=== PATIENT | female | born 1980 | race Caucasian/White ===

== ENCOUNTER 2019-05-06 17:52 | Inpatient (IN) | payer MEDICAID ==
[~2019-05-06] VITALS: Ht 154.9 cm; Wt 93.1 kg
[2019-05-06 18:53] VITALS: Ht 154.9 cm; Wt 93.1 kg
[2019-05-06 18:54] VITALS: BP 126/79; PULSE 75; RESP 20
== END 2019-05-07 12:50 | disposition home or self-care (01) | DRG 832 ==
LOC: L-D 17:52
PROVIDERS: ADMIT Obstetrics & Gynecology; ATTEND Obstetrics & Gynecology
DX: O60.03 Preterm labor without delivery, third trimester (principal); O10.913 Unspecified pre-existing hypertension complicating pregnancy, third trimester; Z3A.32 32 weeks gestation of pregnancy
CPT/HCPCS: 80053; 81001; 84560; 85025; 85610; 85730; 86592; 86850; 86900; 86901